=== PATIENT | female | born 1990 | race Caucasian/White ===

== ENCOUNTER 2021-12-14 22:00 | Emergency (ER) | payer MEDICAID, SELFPAY ==
--- NOTE | 2021-12-14 22:00 | RT.EKG_ITS ---
APPROVED REPORT Exam: Resting ECG Reason for Exam: chest pain Patient Location: E HR:93 bpm ECG Measurements Heart Rate 93 AXIS SC 131 P 58 QRSd 79 QRS 59 QT 361 T 56 QTc 450 Conclusion Sinus rhythm...normal P axis, V-rate 60- 99 sinus rhythm, normal axis, normal intervals, non ischemic
[2021-12-14 22:02] VITALS: BP 162/142; PULSE 101; RESP 18; TEMP 36.4; O2SAT 92
[2021-12-14 22:12] VITALS: BP 120/62
[2021-12-14 22:25] VITALS: RESP 18
--- NOTE | 2021-12-14 22:32 | ED.GENADUL_ITS ---
Discharge Plan Disposition Patient Disposition: HOME Condition: Improving Discharge Details Chief Complaint: Chest Pain Clinical Impression: Chest pain ED Provider: David Sawyer Discharge Instructions Instructions: Chest Pain (ED) Medical Decision Making 31-year-old female brought in by EMS for evaluation of chest pain, patient was picked up by [facility] police were public intoxication, complained of chest pain during intake, patient verbally and physically aggressive towards staff immediately on arrival. Cursing and not participating with history and physical. Patient found to have a blood sugar of 69 on arrival given p.o. Ensure. Had some nausea and rhinorrhea concerned that patient may have had early signs of opioid withdrawal, offered patient clonidine and Ativan for her symptomatology she verbally berated staff regarding medications, refusing to fully presents today with history and physical. Repeat vital signs showing mild tachycardia, normal blood pressure afebrile. Patient speaking full sentences screaming at the top of her lungs. I reached out to [facility] human services as [place] said that they wanted to be contacted before patient was to be discharged, [facility] services reach out to the state police who stated that the patient is free to go if she is medically cleared. Patient's aggression is escalating, is currently hemodynamically stable and in no respiratory distress EKG nonischemic. Clinically sober ambulatory no acute distress. Patient discharged before she could continue to disrupt the department. HPI General Date/Time Provider Initiated Documentation: 12/14/21 22:05 . HPI Narrative: 31-year-old female unknown past medical history brought in by EMS for evaluation of chest pain. Patient was picked up by [facility] police for public intoxication.. During intake patient complained of anterior chest pain. General Stated Complaint: Chest Pain LUIS FELIPE: 3 Review of Systems Narrative: Review of Systems Constitutional: negative Eyes: negative ENT: negative Cardiovascular: Chest pain Respiratory: negative Gastrointestinal: negative : negative Musculoskeletal: negative Skin: negative Neurologic: negative Psych: negative PFSH All Active Problems (Updated 12/14/21 @ 22:51 by David Sawyer MD) Chest pain (Acute) Social History Smoking risk assessment performed?: No Do you feel safe at home: Yes Do you feel safe in your relationship?: Yes Exam Narrative Exam Narrative: Physical Examination General: alert, awake, cooperative, resting comfortably, no acute distress HEENT: normocephalic, atraumatic; PERRL, EOM intact, conjunctiva normal; no nasal discharge; moist mucous membranes, oral and pharyngeal mucosa normal, tolerating secretions Neck: supple, trachea midline; full ROM Chest: normal to inspection Respiratory: normal respiratory effort, speaking in full sentences, screaming at staff, clear to auscultation, no wheezing, rales or rhonchi Cardiac: regular rate, regular rhythm, S1S2 intact, no murmurs rubs or gallops GI: abdomen soft, non-tender, non-distended; no palpable mass or hepatosplenomegaly Skin: no lesions, rashes or trauma appreciated Neuro: AAOx3, normal speech, moving all extremities Psych: Agitated, verbally aggressive Course Vital Signs Vital signs: Vital Signs Temperature 36.4 C L 12/14/21 22:02 Pulse 101 H 12/14/21 22:02 Respiratory Rate 18 12/14/21 22:02 Blood Pressure 162/142 H 12/14/21 22:02 Pulse Oximetry 92 12/14/21 22:02 Temperature 36.4 C L 12/14/21 22:02 Temperature Source Temporal Artery Scan 12/14/21 22:02 Pulse 101 H 12/14/21 22:02 Respiratory Rate 18 12/14/21 22:25 Respiratory Effort 12/14/21 22:25 Respiratory Depth Normal 12/14/21 22:25 Respiratory Pattern Normal 12/14/21 22:25 Blood Pressure 120/62 12/14/21 22:12 Blood Pressure Position Sitting 12/14/21 22:02 Pulse Oximetry 92 12/14/21 22:02 Oxygen Delivery Method Room Air 12/14/21 22:02 Oxygen Flow Rate 0 12/14/21 22:02 Pain Level 5 12/14/21 22:02 PAWSS Have you Been Recently Intoxicated or Drunk Within the Last 30 days?: Yes Have you Ever Experienced Previous Episodes of Alcohol Withdrawal?: Unable to Obtain Have you ever Experienced Withdrawal Seizures?: Unable to Obtain Have you ever Experienced Delirium Tremens(DT)s?: Unable to Obtain Have you ever undergone Alcohol Rehabilitation Treatment (i.e, inpt ot outpatient treatment programs)?: Unable to Obtain Have you ever Experienced Blackouts?: Unable to Obtain Have you ever Combined Alcohol with other Downers within the last 90 days?: Unable to Obtain Have you ever Combined Alcohol with any other Substance of Abuse during the last 90 days?: Unable to Obtain Positive Blood Alcohol level on Presentation? [PCS.BAL]: Unable to Obtain Evidence of Increased Autonomic Activity (i.e. HR>120, tremor, sweating, agitation, nausea)?: Unable to Obtain Result: 1
== END 2021-12-14 22:44 | disposition home or self-care (01) ==
LOC: ER 22:56
PROVIDERS: Emergency Provider Emergency Medicine
DX: R07.89 Other chest pain (principal); R00.0 Tachycardia, unspecified
CPT/HCPCS: 93005; 99283; 93010

== ENCOUNTER 2022-01-06 18:44 | Emergency (ER) | payer MEDICAID, SELFPAY ==
--- NOTE | 2022-01-06 19:07 | DI.RAD_ITS ---
Exam(s) XR HAND LT COMPLETE EXAM: XR HAND LT COMPLETE CLINICAL HISTORY: dog bite TECHNIQUE: COMPARISON: No exams were available for comparison FINDINGS: Three views were obtained. There is no evidence of acute fracture or dislocation. No foreign body s een. IMPRESSION: RADIATION DOSE DELIVERED: Total DLP
[2022-01-06 19:40] VITALS: BP 133/84; PULSE 110; RESP 18; TEMP 36.6; O2SAT 95
--- NOTE | 2022-01-06 19:50 | ED.GENADUL_ITS ---
Discharge Plan Disposition Patient Disposition: HOME Condition: Stable Discharge Details Clinical Impression: Dog bite Primary Care Provider: Rachele,Local ED Provider: Bibiana Vasquez Home Meds and New Rx's Prescriptions: New doxycycline hyclate 100 mg tablet 100 mg PO BID Qty: 10 0RF Discharge Instructions Instructions: Animal Bite (ED) Additional Instructions: Take antibiotic as prescribed Yogurt daily while on antibiotic Take ibuprofen and Tylenol as needed for pain Take the antibiotics only for 5 days Please return with spreading redness, fever, worsening pain Discharge Data Discharge Date/Time-TO BE ENTERED AT DEPARTURE: 01/06/22 20:07 Medical Decision Making wounds cleansed and dressing applied motrin/tylenol prn pain doxycycline initiated animal control report return precautions discussed and pt expressed understanding Medical Records Medical records reviewed: Yes I reviewed the patient's medical records. HPI General Date/Time Provider Initiated Documentation: 01/06/22 18:49 . HPI Narrative: This 31-year-old female presents with report of dog bite to right hand just prior to arrival. denies strength or sensation changes. tetanus reportedly utd. occured just [employer] per pt. dog resides at her home and reportedly utd on rabies. Related Data Home Medications Medication Instructions Recorded Confirmed doxycycline hyclate 100 mg tablet 100 mg PO BID #10 tabs 01/06/22 Previous Rx's Medication Instructions Recorded doxycycline hyclate 100 mg tablet 100 mg PO BID #10 tabs 01/06/22 General Stated Complaint: AnimalBite LUIS FELIPE: 4 Review of Systems Narrative: ROS obtained x3 and negative aside for indication in hpi PFSH All Active Problems (Updated 01/06/22 @ 19:57 by Mariya Frederick) Chest pain (Acute) Dog bite (Acute) Medical History (Updated 01/06/22 @ 19:57 by Mariya Frederick) Lung cancer Social History Smoking/Tobacco Use Status: Unknown Smoking risk assessment performed?: Yes Substance use type: unknown Details: pt declines to answer questions Do you feel safe at home: Yes Do you feel safe in your relationship?: Yes Exam Const General: cooperative, comfortable and no acute distress Resp Effort & Inspection: normal respiratory effort Cardio Rate: regular rate Extrem Other: right hand with several superficial abrasions, no obvious tenderness of lacerat ions to fingers, strength, sensation, and cap refill intact Course Vital Signs Vital signs: Vital Signs Temperature 36.6 C 01/06/22 19:40 Pulse 110 H 01/06/22 19:40 Respiratory Rate 18 01/06/22 19:40 Blood Pressure 133/84 01/06/22 19:40 Pulse Oximetry 95 01/06/22 19:40 Temperature 36.6 C 01/06/22 19:40 Temperature Source Oral 01/06/22 19:40 Pulse 110 H 01/06/22 19:40 Respiratory Rate 18 01/06/22 19:40 Blood Pressure 133/84 01/06/22 19:40 Pulse Oximetry 95 01/06/22 19:40 Pain Level 5 01/06/22 19:40
--- NOTE | 2022-01-06 19:56 | DI.VRAD_ITS ---
PROCEDURE INFORMATION: Exam: XR Left Hand Exam date and time: 01/06/2022 7:29 PM Age: 31 years old Clinical indication: Injury or trauma; Other: Dog bite; Hand; Left; Injury date: 01/06/22 TECHNIQUE: Imaging protocol: Radiologic exam of the Left hand. Views: 3 or more views. COMPARISON: No relevant prior studies available. FINDINGS: Bones/joints: Thin irregular lucency across the distal diaphysis of the proximal phalanx of the 4th digit may be compatible with a nutrient channel. Soft tissues: Normal. IMPRESSION: Thin irregular lucency across the distal diaphysis of the proximal phalanx of the 4th digit may be compatible with a nutrient channel. And incomplete nondisplaced fracture cannot be completely excluded. Dictated and Authenticated by: Freddy Concepcion MD. Ordering:ENRIQUE Mccarty MD
[2022-01-06] MEDS: Ketorolac 15 MG/ML VIAL IM (19:58)
[2022-01-06] MEDS: Doxycycline Hyclate 100 MG CAP PO (20:12)
== END 2022-01-06 20:07 | disposition home or self-care (01) ==
LOC: ER 20:24
PROVIDERS: Emergency Provider Physician Assistant
DX: S61.451A Open bite of right hand, initial encounter (principal); W54.0XXA Bitten by dog, initial encounter
CPT/HCPCS: 96372; 99284; 73130; J1885

== ENCOUNTER 2022-02-02 22:23 | Emergency (ER) | payer MEDICAID, SELFPAY ==
[2022-02-02] VITALS (13 sets, daily range): BP systolic 108–114; BP diastolic 60–67; PULSE 85–99; RESP 13–28; TEMP 36.4; O2SAT 95–100
--- NOTE | 2022-02-02 22:15 | DI.CT_ITS ---
Exam(s) CT CHEST/ABD/PEL W EXAM: CT CHEST/ABD/PEL W CLINICAL HISTORY: Trauma. TECHNIQUE: Imaging Protocol: Axial computed tomography images with coronal and sagittal reformatted images were created and reviewed CONTRAST MATERIAL: Intravenous: Omnipaque 350 Contrast volume:100 ml Oral: None COMPARISON: CT CT THORACIC LUMBAR SPINE WO from 02/02/2022 FINDINGS: CHEST: LUNGS: No evidence of infiltrate or lung contusion. No pneumothorax. No pleural effusion. No incid ental ominous lung nodules. MEDIASTINUM: No evidence of mediastinal hematoma. No incidental hilar nor mediastinal adenopathy. V isualized thyroid unremarkable. CARDIAC: Heart size is normal. There is no pericardial effusion.Thoracic aorta appears unremarkable. No dissection. OSSEOUS: No significant osseous lesions.No fractures.. ABDOMEN: There is no ascites. No evidence of mesenteric nor bowel wall hematoma. LIVER: There are no focal hepatic lesions nor dilatation of intrahepatic ducts. No patent laceration . GALLBLADDER/BILIARY: No obvious gallbladder pathology. CBD is not dilated. PANCREAS: No evidence of pancreatic mass nor dilatation of the pancreatic duct. SPLEEN: Spleen is not enlarged. No lacerations. There are no intrasplenic lesions. Splenic and por steffi veins are patent. ADRENALS: There are no significant adrenal masses. KIDNEYS: No calculi nor hydronephrosis. No solid renal masses. No cysts evident. No laceration or coker bcapsular hematoma. ABDOMINAL AORTA: Abdominal aorta is not enlarged. LYMPH NODES: There is no retroperitoneal nor paraaortic adenopathy. ABDOMINAL WALL: No evidence of significant anterior abdominal wall nor inguinal hernia. GI: There is no evidence of bowel obstruction. PELVIS: LYMPH NODES: There is no intrapelvic nor inguinal adenopathy. GI: No evidence of appendicitis.No evidence of sigmoid diverticulitis. URINARY BLADDER: No calculi nor masses evident REPRODUCTIVE: Age-appropriate OSSEOUS: No significant osseous lesions. IMPRESSION: 1. No significant trauma sequelae in the chest, abdomen, and pelvis. RADIATION DOSE DELIVERED: Total DLP DATA REPOSITORY: All CT scans at this facility are submitted to the National Radiology Data Registry (NRDR) Dose Index Registry (DIR) with the [employer] ([employer]). RADIATION OPTIMIZATION: All CT scans at this facility use at least one of these dose optimization te chniques: automated exposure control; mA and/or kV adjustment per patient size (includes targeted exa ms where dose is matched to clinical indication); or iterative reconstruction.
--- NOTE | 2022-02-02 22:15 | RT.EKG_ITS ---
APPROVED REPORT Exam: Resting ECG Reason for Exam: trauma Patient Location: E HR:96 bpm ECG Measurements Heart Rate 96 AXIS OR 127 P 58 QRSd 75 QRS 68 QT 373 T 62 QTc 471 Conclusion Sinus rhythm...normal P axis, V-rate 60- 99
--- NOTE | 2022-02-02 22:15 | DI.CT_ITS ---
Exam(s) CT THORACIC LUMBAR SPINE WO EXAM: CT THORACIC LUMBAR SPINE WO CLINICAL HISTORY: Trauma, numbness. TECHNIQUE: Imaging Protocol: Axial computed tomography images with coronal and sagittal reformatted images were created and reviewed. CONTRAST MATERIAL: None COMPARISON: No exams were available for comparison FINDINGS: THORACIC SPINAL COLUMN: No acute fracture nor listhesis. No facet malalignment. No significant osse ous lesions. LUMBOSACRAL SPINAL COLUMN: No acute fracture or listhesis. No disc space narrowing. No facet malali gnment. IMPRESSION: No thoracic nor vertebral acute fractures. No malalignment. No acute compromise of the canal. RADIATION DOSE DELIVERED: 987.21 mGy.cm Total DLP DATA REPOSITORY: All CT scans at this facility are submitted to the National Radiology Data Registry (NRDR) Dose Index Registry (DIR) with the [employer] ([employer]). RADIATION OPTIMIZATION: All CT scans at this facility use at least one of these dose optimization te chniques: automated exposure control; mA and/or kV adjustment per patient size (includes targeted exa ms where dose is matched to clinical indication); or iterative reconstruction.
--- NOTE | 2022-02-02 22:15 | DI.CT_ITS ---
Exam(s) CT HEAD CERVICAL SPINE WO EXAM: CT HEAD CERVICAL SPINE WO CLINICAL HISTORY: Trauma, Head injury Loc. TECHNIQUE: Imaging Protocol: Axial computed tomography images with coronal and sagittal reformatted images were created and reviewed COMPARISON: No exams were available for comparison FINDINGS: BRAIN: There are no skull fractures nor fluid in the visualized paranasal sinuses. There is no evidence of intracranial hemorrhage, mass effect, or shift of midline structures. There are no extra-axial fluid collections. The ventricles are not enlarged or shifted and there is no blo od within the ventricular system nor within the basal cisterns. CERVICAL SPINE: There is no evidence of fracture nor listhesis. No significant prevertebral soft tissue swelling. There is no significant facet joint malalignment. No significant osseous lesions evident. IMPRESSION: No acute intracranial findings on this noninfused CT scan of the brain. No evidence of cervical spine fracture, malalignment, nor acute compromise of the cervical spinal can al. RADIATION DOSE DELIVERED: 1,368.85mGy.cm Total DLP DATA REPOSITORY: All CT scans at this facility are submitted to the National Radiology Data Registry (NRDR) Dose Index Registry (DIR) with the [employer] (ACR). RADIATION OPTIMIZATION: All CT scans at this facility use at least one of these dose optimization te chniques: automated exposure control; mA and/or kV adjustment per patient size (includes targeted exa ms where dose is matched to clinical indication); or iterative reconstruction.
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
[2022-02-02 22:46] LABS: Abs Immature Grans 0.01 10^3/uL (0.0-0.06); Absolute Basophil Count 0.04 10^3/uL (0.0-0.2); Absolute Eosinophil Count 0.05 10^3/uL (0.0-0.7); Absolute Lymphocyte Count 1.17 10^3/uL (1.2-3.4); Absolute Neutrophil Count 2.39 10^3/uL (1.2-6.7); Eosinophils % 1.2; HCT 40.6 % (36.0-46.0); Immature Grans % 0.2; Lymphocytes % 28.8; MCH 33.6 pg (27.0-33.0); MCHC 34.5 % (32.0-36.0); MCV 97 fL (80-95); MPV 9.8 fL (8.0-11.0); Monocytes % 9.9; Neutrophils % 58.9; RBC 4.17 10^6/uL (3.93-5.22); RDW 12.6 % (11.7-14.6); RDW-SD 45.4 fL; WBC 4.06 10^3/uL (4.4-10.8)
[2022-02-02 22:50] LABS: Platelet Count 95 10^3/uL (130-400)
[2022-02-02 22:54] LABS: Prothrombin Time 10.2 sec (9.3-11.0)
[2022-02-02 22:55] LABS: Bilirubin Negative (Negative); Blood Negative (Negative); Clarity Clear (Clear); Glucose Negative (Negative); Ketones Negative (Negative); Leukocyte Esterase Trace (Negative); Nitrite Negative (Negative); Specific Gravity 1.015 (1.005-1.025); Urobilinogen 0.2 EU/dL (Up TO 0.2); pH 7.5 (5-8)
[2022-02-02 22:58] LABS: Bacteria Few HPF (Negative); C & S Indicated? Yes; Casts Negative LPF (Negative); Crystals Negative HPF (Negative); Epithelial Cells Few HPF (Negative); Mucus Negative (Negative); RBC Negative HPF (0-2)
[2022-02-02 23:02] LABS: ALT 74 U/L (14-59); AST 99 U/L (15-37); Albumin 3.7 g/dL (3.4-5.0); Alkaline Phosphatase 94 U/L (46-116); Anion Gap 8.5 mmol/L (3-11); BUN 9 mg/dL (7-18); Bilirubin, Total 0.5 mg/dL (0.2-1.0); CO2 28.5 mmol/L (21.0-32.0); CREATININE 0.7 mg/dL (0.55-1.02); Calcium 8.5 mg/dL (8.5-10.1); Chloride 106 mmol/L (98-107); Estimated GFR 119.24 (mL/min/1.73m2); Glucose 79 mg/dL (74-106); Lipase 98 U/L (73-393); Magnesium 2.3 mg/dL (1.8-2.4); Potassium 3.7 mmol/L (3.5-5.1); Sodium 143 mmol/L (136-145); Total Protein 7.1 g/dL (6.4-8.2); Troponin I < 50 ng/L (<or=60)
[2022-02-02 23:05] LABS: ETHANOL BLOOD 321.3 mg/dL (<10)
[2022-02-02 23:07] LABS: *AMPHETAMINES SCREEN URINE Negative (Negative); *BARBITURATES SCREEN URINE Negative (Negative); *BENZODIAZEPINES SCREEN URINE Negative (Negative); Cannabinoids THC Positive (Negative); Cocaine Screen,Urine Negative (Negative); METHADONE URINE SCREEN Negative (Negative); OPIATES URINE SCREEN Negative (Negative); Tricyclic Antidepressants Negative (Negative)
[2022-02-02] MEDS: LORazepam 20 MG/10 ML VIAL IVP (23:11)
[2022-02-02] MEDS: Omnipaque 350 MG/ML 100 ML BTL IJ (23:13)
--- NOTE | 2022-02-02 23:13 | NUR.NOTE ---
Nursing Note: pt is not fully cooperative on arrival, anxious, fearful and beligerant. Pt does state that she is allergic to all antibioitics and unclear on meds. states she does have a seizure history but unable to validate.
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
--- NOTE | 2022-02-02 23:33 | DI.VRAD_ITS ---
PROCEDURE INFORMATION: Exam: CT Chest With Contrast; Diagnostic Exam date and time: 02/02/2022 11:04 PM Age: 31 years old Clinical indication: Injury; Fall; Blunt trauma; Injury date: 02/02/22 TECHNIQUE: Imaging protocol: Diagnostic computed tomography of the chest with contrast. Contrast material: OMNIPAQUE 350; Contrast volume: 100 ml; Contrast route: INTRAVENOUS (IV); COMPARISON: CT HEAD CERVICAL SPINE WO 02/02/2022 10:59 PM FINDINGS: Lungs: No lung contusion. No consolidation. No masses. Pleural spaces: No pneumothorax. No pleural effusion. Heart: No coronary artery calcification. No cardiomegaly. No pericardial effusion. Lymph nodes: No enlarged lymph nodes. Vasculature: Unremarkable. No aortic aneurysm. Bones/joints: No acute fracture. Likely old mild loss of height of the T6 vertebral body. Soft tissues: Unremarkable. IMPRESSION: 1. No acute fracture. 2. No acute intrathoracic findings. PROCEDURE INFORMATION: Exam: CT Abdomen And Pelvis With Contrast Exam date and time: 02/02/2022 11:04 PM Age: 31 years old Clinical indication: Injury; Fall; Blunt trauma; Injury date: 02/02/22 TECHNIQUE: Imaging protocol: Computed tomography of the abdomen and pelvis with contrast. Contrast material: OMNIPAQUE 350; Contrast volume: 100 ml; Contrast route: INTRAVENOUS (IV); COMPARISON: No relevant prior studies available. FINDINGS: Liver: Liver fatty infiltration. Gallbladder and bile ducts: Normal. No calcified stones. No ductal dilation. Pancreas: Normal. No ductal dilation. Spleen: Normal. No splenomegaly. Adrenal glands: Normal. No mass. Kidneys and ureters: Normal. No hydronephrosis. Stomach and bowel: Unremarkable. No obstruction. No mucosal thickening. Appendix: Normal appendix. Intraperitoneal space: No free air. No significant fluid collection. Vasculature: Unremarkable. No abdominal aortic aneurysm. Lymph nodes: No enlarged lymph nodes. Urinary bladder: Unremarkable as visualized. Reproductive: Unremarkable as visualized. Bones/joints: No acute fracture. Soft tissues: Unremarkable. IMPRESSION: 1. No acute fracture. 2. No acute intra-abdominal or pelvic findings. Dictated and Authenticated by: Hollis Anguiano MD. Ordering:JACKIE Arcoe MD
--- NOTE | 2022-02-02 23:35 | DI.VRAD_ITS ---
PROCEDURE INFORMATION: Exam: CT Thoracic Spine Without Contrast Exam date and time: 02/02/2022 11:04 PM Age: 31 years old Clinical indication: Injury; Fall; Blunt trauma; Injury date: 02/02/22 TECHNIQUE: Imaging protocol: Computed tomography of the thoracic spine without contrast. Radiation optimization: All CT scans at this facility use at least one of these dose optimization techniques: automated exposure control; mA and/or kV adjustment per patient size (includes targeted exams where dose is matched to clinical indication); or iterative reconstruction. COMPARISON: CT HEAD CERVICAL SPINE WO 02/02/2022 10:59 PM FINDINGS: Bones/joints: No acute fracture. Normal alignment. No significant disc protrusion. No severe spinal canal stenosis. Spinal degenerative changes. Old mild loss of height of T6. Soft tissues: Unremarkable. IMPRESSION: No acute fracture. PROCEDURE INFORMATION: Exam: CT Lumbar Spine Without Contrast Exam date and time: 02/02/2022 11:04 PM Age: 31 years old Clinical indication: Injury; Fall; Blunt trauma; Injury date: 02/02/22 TECHNIQUE: Imaging protocol: Computed tomography of the lumbar spine without contrast. Radiation optimization: All CT scans at this facility use at least one of these dose optimization techniques: automated exposure control; mA and/or kV adjustment per patient size (includes targeted exams where dose is matched to clinical indication); or iterative reconstruction. COMPARISON: No relevant prior studies available. FINDINGS: Bones/joints: No acute fracture. Normal alignment. No significant disc protrusion. No severe spinal canal stenosis. Soft tissues: Unremarkable. IMPRESSION: No acute fracture. Dictated and Authenticated by: Hollis Anguiano MD. Ordering:JACKIE Arceo MD
[2022-02-03] VITALS (16 sets, daily range): BP systolic 109–112; BP diastolic 62–76; PULSE 88–100; RESP 12–15; O2SAT 95–99
--- NOTE | 2022-02-03 02:34 | W.EDPROG ---
Date of service: 02/03/22 Time of Service: 02:34 Medical Decision Making Patient was seen, examined and discussed with Ms. Vu. I agree with her assessment and plan. Patient's imaging was reassuring. She was observed and metabolized her alcohol with clinical improvement over 5 hours time. Patient clinically sober. Sign Out Sign Out Data: Sign Out Comment: Pending Metabolize to freedom versus protective custody. Negative workup. ETOH 321. Last updated by Marielos Vu NP at 02/02/22 23:39 Discharge Plan Disposition Patient Disposition: HOME Condition: Stable Discharge Details Clinical Impression: Alcohol abuse Primary Care Provider: Rachele,Local ED Provider: Alex Gimenez Home Meds and New Rx's Prescriptions: No Action Unable to Obtain Discharge Instructions Instructions: Abuse of Alcohol (ED) Additional Instructions: Your work-up in the emergency department included CAT scans of the head, cervical spine, chest, abdomen, pelvis, thoracic and lumbar spine. You had no acute injuries seen. Continue your efforts to decrease alcohol use.
--- NOTE | 2022-02-03 03:24 | NUR.NOTE ---
Nursing Note: pt awoke from sound sleep, got off bed and ambulated around room stating that she needed to go to the bathroom. Pt was beligerent yelling profanities at staff. Staff assisted pt to Bathroom with one assist. Upon return to room; pt provided paper clothing, shoe covers for feet and given her belongings back. Pt ripped out IV by self. Dressing applied. Pt dresses self while yelling profanities and degrading staff as I and other ED nurse try to assist. Pt has called a friend for a ride home who states he can come get her. Attempted to review discharge instructions with Pt who refuses to review them and states she will not sign anything. Pt then states she then is unable to walk to the waiting room. Pt assisted via wheelchair and as going to waiting room, pt demanded to see discharge papers and then proceeded to throw them all in the trash. Pt taken to waiting room. While in waiting room, apparently patient learned that her ride would not be coming. Pt then took wheelchair to bathroom and spit on floor and yelled profanities at security staff. Pt begrudgingly agreed to go back to treatment room. [facility] called to screen pt
--- NOTE | 2022-02-03 07:35 | NUR.NOTE ---
Referral to Care Management to authorize RCT ride home to [address] [place] [address]. Nursing Note:
--- NOTE | 2022-02-03 08:31 | CMACTNOTE_ITS ---
- If Service Date Differs Date of service: 02/03/22 Time of Service: 08:31 Care Management Activity Note Giuseppe is seen in the ED for alcohol abuse. CM is asked to send an Authorization Form to [facility] so Giuseppe can return to [address] [place] [address]. CM completes form and faxes it to [facility].
--- NOTE | 2022-02-03 08:31 | PDOC.ERCMACT ---
- If Service Date Differs Date of service: 02/03/22 Time of Service: 08:31 Care Management Activity Note Giuseppe is seen in the ED for alcohol abuse. CM is asked to send an Authorization Form to [facility] so Giuseppe can return to [address] [place] [address]. CM completes form and faxes it to [facility].
== END 2022-02-03 02:50 | disposition home or self-care (01) ==
PROVIDERS: Registered Nurse Emergency; Emergency Provider Emergency Medicine
DX: F10.10 Alcohol abuse, uncomplicated (principal); S80.11XA Contusion of right lower leg, initial encounter; S80.12XA Contusion of left lower leg, initial encounter; G89.11 Acute pain due to trauma; R51.9 Headache, unspecified; M54.2 Cervicalgia; Y90.8 Blood alcohol level of 240 mg/100 ml or more; Y04.2XXA Assault by strike against or bumped into by another person, initial encounter
CPT/HCPCS: 74177; 80053; 80307; 81025; 83690; 93005; 96374; 99285; 70450; 71260; 72125; 72128; 72131; 80320; 81003; 81015; 83735; 84484; 85025; 85610; 87086; 93010; J3490